=== PATIENT | male | born 1980 | race African-American/Black ===

== ENCOUNTER 2025-05-07 21:10 | Emergency (ER) | payer MEDICAID ==
[~2025-05-07] VITALS: Ht 175.3 cm; Wt 62.2 kg
[2025-05-07 21:23] VITALS: O2SAT 100
[2025-05-07] MEDS: ACETAMINOPHEN 500MG TABLET PO ONE (22:56)
[2025-05-07] MEDS: IBUPROFEN 400MG TABLET PO ONE (22:56)
[2025-05-07] MEDS ORDERED: IBUP-2028 MT (23:54)
[2025-05-08 00:25] VITALS: BP 95/60; PULSE 65; RESP 14; TEMP 36.7; O2SAT 100
== END 2025-05-08 00:29 | disposition home or self-care (01) ==
LOC: ER 21:10
DX: M79.672 Pain in left foot (principal)
CPT/HCPCS: 73630; 99283